=== PATIENT | male | born 1965 | race Caucasian/White ===

== ENCOUNTER 2016-08-31 11:35 | Emergency (ER) | payer MEDICAID, MEDICARE ==
[~2016-08-31] VITALS: Ht 180.3 cm; Wt 106.8 kg
[~2016-08-31 11:35] MED LIST: CITA20TA PO; DEP500A PO; DEP500ER PO; DES50 PO; GLU500 PO; HAL1 PO; LIT450 PO; VAS5 PO
[2016-08-31 11:53] VITALS: BP 139/103; PULSE 75; RESP 18; O2SAT 96
--- NOTE | 2016-08-31 12:01 | ED.REPORT ---
HPI-Psychiatric Illness Date of Service Aug 31, 2016 ED Provider: Jacob Patricia Patient is a 50 year old male who presents to the ED in police custody s/p jumping into traffic three separate times, yelling out, and hitting mailboxes. He reports that he was very aware of what he was doing. He states that he is bipolar and has been suicidal before. When police asked why he was jumping into traffic he said he doesn't know. He states, "I put it into my head that... I'm just very unpredictable. That's basically what it is, it's unpredictable". "My only main concern is getting over to housing authority but this got in the way so now I'm here". 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 "Since my parents , I've gotten a lot worse. People don't wanna be with me or be around me. I can be very unapproachable". He does not take his medications regularly and claims that he "skips them every now and then". Patient is a difficult historian. Nursing Notes Stated Complaint: PSYCH Chief Complaint: Psychiatric Complaint Nursing Notes Reviewed: Yes Allergies: Coded Allergies: Penicillins (Verified Allergy, Unknown, 08/31/16) ziprasidone HCl (Verified Allergy, Unknown, 08/31/16) ziprasidone mesylate (Verified Allergy, Unknown, 08/31/16) Scheduled Citalopram-Expunged Drug, Do Not Renew! (Citalopram-Expunged Drug, Do Not Renew! ) 20 Mg Tablet 20 MG PO HS for depression and anxiety Divalproex Sod-Expunged Drug, Do Not Renew! (Divalproex Sod-Expunged Drug, Do Not Renew!) 500 Mg Tabec 2,000 MG PO HS Divalproex Sod-Expunged Drug, Do Not Renew! (Divalproex Sod-Expunged Drug, Do Not Renew!) 500 Mg Tablet 2,000 MG PO HS Enalapril-Expunged Drug, Do Not Renew! (Enalapril-Expunged Drug, Do Not Renew!) 5 Mg Tablet 2.5 MG PO DAILY Enalapril-Expunged Drug, Do Not Renew! (Enalapril-Expunged Drug, Do Not Renew!) 5 Mg Tablet 2.5 MG PO DAILY Haloperidol-Expunged Drug, Do Not Renew! (Haldol-Expunged Drug, Do Not Renew!) 1 Mg Tablet 2 MG PO BID [place] Carb-Expunged Drug, Do Not Renew! (Eskalith CR-Expunged Drug, Do Not Renew!) 450 Mg Tber 450 MG PO HS Metformin-Expunged Drug, Do Not Renew! (Metformin-Expunged Drug, Do Not Renew!) 500 Mg Tablet 1,000 MG PO BIDWM for diabetes Metformin-Expunged Drug, Do Not Renew! (Metformin-Expunged Drug, Do Not Renew!) 500 Mg Tablet 1,000 MG PO BIDWM Scheduled PRN Trazodone-Expunged Drug, Do Not Renew! (Trazodone-Expunged Drug, Do Not Renew!) 50 Mg Tab 50 MG PO HSPMR PRN PRN General Time Seen by MD: 12:00 Chief Complaint Bizarre behavior Hx Obtained From: Patient, EMS Arrived By: Police Onset Occurred: Just prior to arrival Risk-Psychiatric Illness Suicide Risk Stratification Suicide Risk Factors - Adult: : Previous attempt: Prior psych admissionNo: Access to firearms, Close associate suicide, Family Hx of Suicide RF Statements: Risk factors reviewed Past Medical History Past Medical History Bipolar Reports: Diabetes mellitus (Non-insulin dependent), Hypertension Past Surgical History finger lac Social History Previous suicide attempt Review of Systems Basic Review of Systems ENT: No pain : No dysuria Musculoskeletal: No extremity swelling, No extremity pain Endocrine: No cold intolerance Allergy / Immune: No allergy Physical Exam Initial Vital Signs Vital Signs (First) Date Time Temp Pulse Resp B/P Pulse Ox O2 Delivery O2 Flow Rate FiO2 08/31/16 11:53 36.6 75 18 139/103 96 08/31/16 14:51 Room Air Initial VS: Reviewed Head / Eyes: Atraumatic, Normocephalic Neck: Full range of motion Skin: Warm, Dry General/Constitutional: Awake, Alert, Well developed Neurologic: Oriented X3 Abnormal Mood/Affect: Positive: Inappropriate Odd, guarded affect. Respiratory / Chest: Breath sounds NL, Breath sounds = bilat, No respiratory distress Cardiovascular: Heart rate NL, Regular rhythm, Heart sounds NL, No gallop, No murmurs, No rubs Interpretation & Diagnostics Lab Results Interpretation Lab Results Interpretation: utox: negative Re-Eval/Medical Decision Re-Evaluation/Progress : Time of Eval: 13:49 Re-Evaluation/Progress Note: Rechecked patient. He contracts for safety at this time. When discussing how he could call housing authority to let them know that he is here, he said "What if I feel that I don't trust myself? I don't want to call them", "I feel unstable. I need to be stabilized". Will follow up with [facility] in 3 days. Counseled Regarding: Diagnosis, Need for follow-up, When/why to return to ED Discharge & Departure Impression: Primary Impression: Acute situational disturbance )( Condition at Discharge: No danger to self, No danger to others, No suicidal ideation Disposition: Home Discharge Condition All VS Reviewed: Yes Condition: Stable Additional Instructions: In the ED today, we do not find you to be at acute risk to yourself or a danger to others. take your medications as prescribed without skipping any. follow up with your counselor and psychiatrist this week. return if having increasing thoughts of self-harm. Referrals: Jesica Shepard MD (PCP) Scribe Attestation Portions of this note were transcribed by Helen Acevedo. I, Dr. Patricia personally performed the history, physical exam and medical decision-making; I reviewed and confirmed the accuracy of the information in the transcribed note. Signed by: Helen Acevedo 08/31/16, 1529 copies to: Jesica Shepard MD, Donald L MD Aug 31, 2016 12:01 HELEN ACEVEDO Aug 31, 2016 13:12
[2016-08-31 14:51] VITALS: BP 128/86; PULSE 67; RESP 16; O2SAT 98
[2016-08-31 14:55] VITALS: BP 128/86; PULSE 67; RESP 16; O2SAT 98
== END 2016-08-31 14:45 | disposition home or self-care (01) ==
LOC: SED 11:35
DX: F43.0 Acute stress reaction (principal); I10 Essential (primary) hypertension; E11.9 Type 2 diabetes mellitus without complications; F31.9 Bipolar disorder, unspecified; Z88.0 Allergy status to penicillin; Z88.8 Allergy status to other drugs, medicaments and biological substances

== ENCOUNTER 2017-03-27 22:57 | Emergency (ER) | payer MEDICARE ==
[2017-03-27 23:20] VITALS: BP 148/101; PULSE 101; RESP 16; O2SAT 100
--- NOTE | 2017-03-27 23:32 | ED.REPORT ---
HPI-Psychiatric Illness Date of Service Mar 27, 2017 ED Provider: Anthony Abbott MD Patient is a 51 year old male with a history of diabetes and bipolar disorder who presents to the ED via police for a mental health evaluation. He reports that he called the police and he's not "pretending anymore", which is why he called the police. When asked what we can do for him, he states "no one can do anything for him". The patient reports that he has not been taking his medications for the past few months. When asked if he is suicidal he states he "doesn't know what he's going to do" and he "doesn't trust himself". During exam though, he states that he wishes his heart would just explode and get it over with. He reports that his last drink was a week ago and he hasn't been drunk for 7 months. Patient states that he won't hurt anyone while he is here. Nursing Notes Stated Complaint: MENTAL HEALTH EVALUATION Chief Complaint: Psychiatric Complaint Nursing Notes Reviewed: Yes Allergies: Coded Allergies: Penicillins (Verified Allergy, Unknown, 08/31/16) ziprasidone HCl (Verified Allergy, Unknown, 08/31/16) ziprasidone mesylate (Verified Allergy, Unknown, 03/27/17) Scheduled Citalopram-Expunged Drug, Do Not Renew! (Citalopram-Expunged Drug, Do Not Renew! ) 20 Mg Tablet 20 MG PO HS for depression and anxiety Divalproex Sod-Expunged Drug, Do Not Renew! (Divalproex Sod-Expunged Drug, Do Not Renew!) 500 Mg Tabec 2,000 MG PO HS Divalproex Sod-Expunged Drug, Do Not Renew! (Divalproex Sod-Expunged Drug, Do Not Renew!) 500 Mg Tablet 2,000 MG PO HS Enalapril-Expunged Drug, Do Not Renew! (Enalapril-Expunged Drug, Do Not Renew!) 5 Mg Tablet 2.5 MG PO DAILY Enalapril-Expunged Drug, Do Not Renew! (Enalapril-Expunged Drug, Do Not Renew!) 5 Mg Tablet 2.5 MG PO DAILY Haloperidol-Expunged Drug, Do Not Renew! (Haldol-Expunged Drug, Do Not Renew!) 1 Mg Tablet 2 MG PO BID [place] Carb-Expunged Drug, Do Not Renew! (Eskalith CR-Expunged Drug, Do Not Renew!) 450 Mg Tber 450 MG PO HS Metformin-Expunged Drug, Do Not Renew! (Metformin-Expunged Drug, Do Not Renew!) 500 Mg Tablet 1,000 MG PO BIDWM for diabetes Metformin-Expunged Drug, Do Not Renew! (Metformin-Expunged Drug, Do Not Renew!) 500 Mg Tablet 1,000 MG PO BIDWM Scheduled PRN Trazodone-Expunged Drug, Do Not Renew! (Trazodone-Expunged Drug, Do Not Renew!) 50 Mg Tab 50 MG PO HSPMR PRN PRN General Time Seen by MD: 23:30 Chief Complaint Other Hx Obtained From: Patient Arrived By: Police Severity: Current: No pain currently Similar Sx Previous: Yes Risk-Psychiatric Illness Suicide Risk Stratification Suicide Risk Factors - Adult: : Previous attempt: Prior psych admissionNo: Alcohol use, Substance abuse RF Statements: Risk factors reviewed Past Medical History Past Medical History Bipolar Reports: Diabetes mellitus, Hypertension Past Surgical History finger lac Social History Previous suicide attempt Drug Use: Denies drug use Ambulatory Status Independent Review of Systems Unable to Obtain ROS Patient condition Physical Exam Initial Vital Signs Initial VS: Unavailable General/Constitutional: Awake, Alert, No acute distress Neurologic: Speech NL, No motor deficits inattentive seems impulsive animated, seems aggressive passive ideas of suicide Re-Eval/Medical Decision Med Decision/Clinical Course 51-year-old male who called 911 because he was scared of what he might do. He is not forthcoming historian. He has intermittent angry outbursts, swearing at staff and refusing to cooperate. He would not allow vital signs although there were no physical examination of unstable vital signs. His breathalyzer was 0 and his urine drug screen was negative. He refused Zyprexa and lab draw. Because of his inability to fully cooperate and his angry outbursts he was placed in seclusion for the initial evaluation. His care is being turned over change of shift to Dr. Ge Massey. We will make another attempt to enlist his cooperation in doing the necessary evaluation. Re-Evaluation/Progress #1: Time of Eval: 00:30 Re-Evaluation/Progress Note: Patient is refusing to take any medications. Re-Evaluation/Progress #2: Time of Eval: 00:39 Re-Evaluation/Progress Note: Plan to move patient to seclusion room. Discharge & Departure Shift Change Sign-Out Patient Care Transferred: Yes Discussed Complaint(s): Yes Impression: Primary Impression: Acute situational disturbance Discharge Condition All VS Reviewed: Yes Condition: Stable Referrals: Jesica Shepard MD (PCP) Care Transferred at: 06:00 Scribe Attestation Portions of this note were transcribed by Marina Reyes. I, Dr. Abbott personally performed the history, physical exam and medical decision-making; I reviewed and confirmed the accuracy of the information in the transcribed note. Signed by: Fanny Mariee, 03/27/17 copies to: Jesica Shepard MD, Howard L MD Mar 27, 2017 23:32 Demi Reyes Mar 27, 2017 23:50
[2017-03-28] MEDS ORDERED: OLANZapine Zydis ODT 5 mg Tablet PO ONE (00:11)
[2017-03-28 05:50] VITALS: BP 127/81; PULSE 58; RESP 16; O2SAT 98
[2017-03-28 06:42] LABS: BASOPHILS % (AUTO) 0.3 % (0-3); EOSINOPHILS % (AUTO) 0.9 % (0-5); Mean Corpuscular Hemoglobin 31.3 pg (27.0-35.0); Mean Corpuscular Volume 87.8 fL (81-100); NEUTROPHILS % (AUTO) 50.9 % (40-74); Platelet Count 263 bil/L (150-400)
[2017-03-28 09:44] VITALS: BP 133/97; PULSE 85; RESP 16; O2SAT 98
== END 2017-03-28 09:45 | disposition home or self-care (01) ==
LOC: SED 22:57
DX: F43.0 Acute stress reaction (principal); E11.9 Type 2 diabetes mellitus without complications; I10 Essential (primary) hypertension; F31.9 Bipolar disorder, unspecified; Z88.0 Allergy status to penicillin; Z88.8 Allergy status to other drugs, medicaments and biological substances